=== PATIENT | female | born 1945 | race Caucasian/White ===

== ENCOUNTER 2022-03-08 10:08 | Day surgery (SDC) | payer MEDICARE, OTHER, SELFPAY ==
[2022-03-08 10:45] VITALS: BP 222/195; PULSE 69; RESP 16; TEMP 37; O2SAT 97
[2022-03-08] MEDS: Tropicam./Phenyleph. (1/2.5%) 5 ML BTL OS ×3 (11:00→12:02)
--- NOTE | 2022-03-08 11:08 | W.ANESPRE ---
General Info Date of Service Date Performed: 03/08/22 Height: 5 ft 3 in Weight: 91.5 kg Body Mass Index (BMI): 35.7 Surgical Procedure: Operation Date: 03/08/22 13:40 Proposed Procedure Side Surgeon p Cataract Extraction with IOL Implant Left Jeet Bender MD Meds Allergies and Home Medications Allergies Allergy/AdvReac Type Severity Reaction Status Date / Time No Known Allergies Allergy Unverified 03/08/22 10:44 Home Medication Medication Instructions Recorded amlodipine 10 mg tablet 10 mg PO DAILY 03/04/22 aspirin 81 mg tablet,delayed 81 mg PO DAILY 03/04/22 release atorvastatin 40 mg tablet 40 mg PO DAILY 03/04/22 cholecalciferol (vitamin D3) 50 50 mcg PO DAILY 03/04/22 mcg (2,000 unit) tablet cromolyn 4 % eye drops See Rx Instructions .Route .COMPLEX 03/04/22 doxazosin 2 mg tablet 2 mg PO BID 03/04/22 hydromorphone 2 mg tablet 2 mg PO Q6H PRN 03/04/22 lisinopril 10 mg tablet 10 mg PO BID 03/04/22 omeprazole 20 mg capsule,delayed 20 mg PO DAILY 03/04/22 release sodium bicarbonate 650 mg tablet 1,300 mg PO DAILY 03/04/22 triamcinolone acetonide 0.1 % 1 applic topical BID PRN 03/04/22 topical cream torsemide 10 mg tablet 10 mg PO DAILY 03/05/22 Current Visit Medications: Current Medications Generic Name Dose Route Start Last Admin Trade Name Freq PRN Reason Stop Dose Admin Acetaminophen 1,000 mg 03/08/22 06:00 Acetaminophen 500 Mg Tab PO Q4H PRN PRN Miscellaneous Medication 0 ml 03/08/22 06:00 Prednisolone 1%, Moxifloxacin 0.5%, Nepafenac 0.1% 5ml Btl OS DIRECTED IGNACIO Miscellaneous Medication 0 ml 03/08/22 06:00 Tropicam./Phenyleph. (1/2.5%) 5 Ml Btl OS DIRECTED IGNACIO Tetracaine HCl 0 ml 03/08/22 06:00 Tetracaine 0.5% 4 Ml Btl OS DIRECTED IGNACIO PFSH Active Problems Active Problems: Problem Status Onset Code Nuclear sclerotic cataract of left eye H25.12 Medical History Medical History Anemia Back pain Bilateral pleural effusion Bradycardia Chest pain CKD (chronic kidney disease), stage IV COPD (chronic obstructive pulmonary disease) COVID 11/2021 De Quervain's disease (tenosynovitis) left Diastolic heart failure Gait disturbance Generalized pruritus GERD (gastroesophageal reflux disease) History of stress test 2018 MIBI, small area of decreased tracer in posterior lateral wall cannot rule out prior posterior lateral AR. Otherwise no ischemia. EF 74%; 02/2021 dobutamine stress echo negative HTN (hypertension) Lumbar degenerative disc disease Neuropathy PVD (peripheral vascular disease) ABIs 08/2021; RLE severe disease, LLE severe disease Resistant hypertension 12/2020 renal artery US neg/neg bilat for stenosis Shingles (herpes zoster) polyneuropathy Sinus tarsi syndrome Smoker Medical History Comments:: pt. states her daughter is resistant to anesthesia Surgical History Surgical History H/O colonoscopy H/O eye surgery 08/2013, 10/2013 H/O shoulder surgery History of carpal tunnel surgery of right wrist 2018 History of tonsillectomy and adenoidectomy Hx of total knee arthroplasty right, 09/2018 Hx of umbilical hernia repair 09/09/20 with mesh, [facility] Tobacco Smoking/Tobacco Use Status: Current every day Alcohol Alcohol Intake: never Substance Use Substance use: Never Substance use type: does not use Vital Signs and Lab Results Vital Signs Most Recent Vital Signs in EMR: Most Recent Vital Signs Temp Pulse Resp BP Pulse Ox 37 C 69 16 222/195 H 97 03/08/22 10:45 03/08/22 10:45 03/08/22 10:45 03/08/22 10:45 03/08/22 10:45 Point of Care Results Point of Care Results: a Lab Results Blood Type / Crossmatch: No Data to Display Complete Blood Count: No Data to Display Complete Metabolic Panel: No Data to Display Liver Function Panel: No Data to Display Coagulation Panel: No Data to Display Cardiac Panel: No Data to Display Arterial Blood Gas: No Data to Display Venous Blood Gas: No Data to Display Pancreas Panel: No Data to Display Thyroid Panel: No Data to Display Infectious Disease: No Data to Display Blood Cultures: No Data to Display Toxicology Panel: No Data to Display Anesthesia Assessment and Plan Anesthesia History Personal History: No History of Anesthesia Complications Family History: No Family History of Anesthesia Complications and Other Exercise Tolerance Exercise Tolerance: Metabolic Equivalents>4 Pertinent Negatives Pertinent Negatives: No Symptoms of GERD Cardiac & Pulmonary Exam Cardiac Exam: Normal S1/S2 Heart Sounds Pulmonary Exam: Clear Bilateral Breath Sounds Implantable Cardiac Device Does patient have a Pacemaker or an ICD?: No Airway Exam Known Difficult Airway: No Mallampati Class: 1 Mouth Opening: Normal (> 3cm) Thyromental Distance: Greater than 3 cm Neck Range of Motion: Full ROM Neck Circumference: Thick Teeth Condition: Normal Dentition ASA Classification ASA Score: ASA 4 Emergency Case?: No NPO Status NPO Status: NPO Clears >2 hours, Solids >8 hours Anesthesia Plan Resuscitation Status: Full Code Anesthesia Technique: MAC Anesthesia Airway Planned: Natural Airway Monitors Used: Standard Monitors
[2022-03-08 11:12] VITALS: BMI 35.7
[2022-03-08] MEDS: Tetracaine 0.5% 4 ML BTL OS (12:49)
[2022-03-08] MEDS: Balanced Salt Soln.-PLUS 500 ML BAG (12:50)
[2022-03-08] MEDS: Lidocaine 2% Jelly 6 ML SYR (12:51)
[2022-03-08] MEDS: Povidone-Iodine Ophth 30 ML BTL (12:52)
[2022-03-08] MEDS: Duovisc Viscoelastic System EACH 1 EACH (13:06)
[2022-03-08 13:26] VITALS: BP 177/59; PULSE 62; RESP 18; TEMP 36.7; O2SAT 96
--- NOTE | 2022-03-08 13:28 | PDOC.DSDIS_ITS ---
Discharge Plan Disposition Patient Disposition: HOME Condition: Good Discharge Details Attending Provider: Jeet Bender Primary Care Provider: Adele Gupta [place] Meds and New Rx's Prescriptions: No Action atorvastatin 40 mg Tablet 40 mg PO DAILY cromolyn 4 % Drops See Rx Instructions .ROUTE .COMPLEX Rx Instructions: strength 1% aspirin 81 mg Tablet,Delayed Release (Dr/Ec) 81 mg PO DAILY triamcinolone acetonide 0.1 % Cream 1 applic TOPICAL BID PRN hydromorphone 2 mg Tablet 2 mg PO Q6H PRN sodium bicarbonate 650 mg Tablet 1,300 mg PO DAILY amlodipine 10 mg Tablet 10 mg PO DAILY lisinopril 10 mg Tablet 10 mg PO BID omeprazole 20 mg Capsule,Delayed Release(Dr/Ec) 20 mg PO DAILY doxazosin 2 mg Tablet 2 mg PO BID cholecalciferol (vitamin D3) 50 mcg (2,000 unit) Tablet 50 mcg PO DAILY torsemide 10 mg Tablet 10 mg PO DAILY Discharge Instructions Stand Alone Forms: Post-op Topical Cataract, Holland Aguirre ([facility]) Discharge Orders Discharge Orders: Discharge Order (Routine); Ordered 03/08/22 Ordered By: Jeet Bender DS: Diagnosis Discharge Diagnosis (1) Nuclear sclerotic cataract of left eye: Status: Resolved
--- NOTE | 2022-03-08 13:29 | W.PM.OP ---
Date of service: 03/08/22 Time of Service: 13:29 Operative Note Operative Note DATE OF PROCEDURE: 03/08/22 PRE-OP DIAGNOSIS: Nuclear cataract, left eye POST-OP DIAGNOSIS: same PROCEDURE: Cataract extraction using phacoemulsification with intraocular lens implant, left eye SURGEON: Jeet Bender ANESTHESIA TYPE: Local By Surgeon and MAC Refer to Anesthesia Record PATHOLOGY: none sent COMPLICATIONS: None Patient was transported to: same day Patient's condition: stable Implants: Andrey and Andrey / [employer] Tecnis [id number] Indications: Progressive decreased vision due to cataract, left eye Procedure Description: CATARACT SURGERY OPERATIVE REPORT PREOPERATIVE DIAGNOSIS: 1. Nuclear cataract, left eye POSTOPERATIVE DIAGNOSIS: Same OPERATION: 1. Cataract extraction using phacoemulsification with posterior chamber intraocular lens implant, left eye. IOL: IOL Gullet Slitter/Model: Andrey & Andrey / DEDRICK Tecnis [id number] IOL Power: + 20.5 diopters IOL Serial Number: [id number] Optic Diameter: 6.0 mm Haptic/Overall Diameter: 13.0 mm PHACO INFO: Tyler [employer]ur[employer] Vision System with OZil and Active [employer]uidics Cumulative Dispersed Energy (CDE): 11.98 seconds SURGEON: Jeet Bender MD, YOVANY ANESTHESIA: Monitored A [facility] (MAC), with local sub-tenon's anesthetic infiltration COMPLICATIONS: None SPECIMENS: None INDICATIONS FOR PROCEDURE: The patient is a 76-year-old lady with history of diminished visual acuity in her left eye secondary to the development of nuclear cataract. She is significantly symptomatic that she desires cataract surgery and attempt to improve and maximize her vision and option of cataract surgery was offered to the patient and she wished to proceed. PROCEDURE: The correct surgical eye was identified and marked as the left eye and the pupil was dilated in the preoperative area using mydriatics and cycloplegics. The dilated pupil size was 7.0 mm. The patient elected to proceed without oral sedation. The patient was brought to the operating room where cardiopulmonary monitoring was instituted and surgical time-out was performed, confirming the correct operative eye and IOL power. Topical anesthesia was administered and ophthalmic povidone-iodine 5% was instilled into the conjunctival fornices. Lidocaine gel was applied to the cornea and the toby-ocular area was prepped with Betadine 10% solution and draped in the usual sterile fashion for intraocular surgery, including an aperture drape. A Tegaderm transparent film dressing was cut in half and used to cover the lashes and lid margins. Care was taken to sequester the lashes and lid margins under the Tegaderm dressing. A lid speculum was placed between the lids of the operative eye and the Tyler Lux[employer] Revalia operating microscope was maneuvered into position. Jose Antonio scissors were then used to make a conjunctival buttonhole approximately 6mm posterior to the limbus in the inferonasal quadrant. Blunt dissection was carried out to expose bare sclera, and a blunt-tipped sub-tenon?s anesthesia cannula was introduced and passed posteriorly along the globe where non-preserved plain lidocaine was injected into posterior sub-Tenon?s space. A sideport knife was used to make a paracentesis port superiorly/superiortemporally. Intraocular phenylephrine/lidocaine was injected int the anterior chamber.. The anterior chamber was filled with viscoelastic. A keratome knife was used to construct a 2-plane near-clear corneal tunnel extending 2.0mm into clear cornea temporally. A flap was raised on the anterior capsule and capsulorhexis forceps were used to complete a continuous curvilinear capsulorhexis of 5.0 mm. Balanced salt solution was then used to perform cortical cleaving hydrodissection and nuclear hydrodelineation until the lens could be freely rotated within the capsular bag. The lens nucleus was then disassembled and removed within the capsular bag and iris plane using phacoemulsification. Residual cortical material was removed using the 45-degree angled silicone I/A tip with 0.3mm port. During cortical cleanup, a perfectly round hole in the posterior capsule was present just inferior to the visual axis. No vitreous prolapse was noted, and Viscoat was injected into the hole to tamponade the vitreous. Care was taken not to allow any chamber to collapse during removal of the irrigation/aspiration handpiece. The capsular bag was partially filled with Viscoat, followed by Provisc. The hole was noted to be perfectly round, approximately 2 mm in diameter, likely due to the phacoemulsification tip. The decision was made to implant the lens within the capsular bag, as the risk of extension of the hole was unlikely, and no vitreous prolapse was noted.. The lens implant described above was inserted into the capsular bag using the DEDRICK [place] Injector. A Kuglen hook was used to dial the IOL into position, very carefully. Residual viscoelastic was then removed very slowly from the anterior chamber using the I/A handpiece. Balanced salt solution was injected into the side-port while removing the irrigation/aspiration handpiece to avoid chamber collapse. The lens implant was noted to center nicely within the capsular bag. The incisions were stromally hydrated, and the anterior chamber was reformed using BSS. Miostat was then injected into the anterior chamber. A side-port knife was then used to make a paracentesis port at the 7 o'clock position, and additional balanced salt solution was injected into the anterior chamber while depressing the lip of the inferior nasal side-port to ensure all residual viscoelastic was removed from the anterior chamber. Then 0.5cc of moxifloxacin 1.0mg/ml were injected into the capsular bag and anterior chamber. The incisions were checked with a Weck spear and found to be secure. The pupil was noted to be round, approximately 4 mm, with no peaking. Several drops of ophthalmic povidone-iodine 5% were then applied to the eye followed by two drops of Imprimis combination prednisolone/moxifloxacin/nepafenac solution. The drapes were removed and a clear plastic protective eye shield was placed over the eye. The patient was then returned to Same Day Surgery in stable condition.
[2022-03-08] MEDS: Torsemide 20 MG TAB 10 MG PO (13:34)
[2022-03-08] MEDS: amLODIPine 10 MG TAB PO (13:34)
--- NOTE | 2022-03-08 14:08 | W.ANESPOSTOP ---
Postoperative Evaluation Date, Time and Location Date Performed: 03/08/22 Time Performed: 13:30 Patient Location: Day Surgery Unit Vital Signs Most Recent Imported Vital Signs: Most Recent Vital Signs Temp Pulse Resp BP Pulse Ox 36.7 C 62 18 177/59 H 96 03/08/22 13:26 03/08/22 13:26 03/08/22 13:26 03/08/22 13:26 03/08/22 13:26 Pain Score Most Recent Pain Score: Most Recent Pain Score Pain Level 0 03/08/22 13:26 Assessment Mental Status: Awake (Alert & Oriented to Patient Baseline) Airway and Respiratory Function: Patent airway with normal (patient baseline) respiratory exam Cardiovascular Function: Hemodynamically Stable Hydration Status: Adequately Hydrated Nausea & Vomiting: No Nausea or Vomiting Pain: Pt. Denies Any Pain Peripheral Nerve Block: Patient did not receive a nerve block
== END 2022-03-08 13:49 | disposition home or self-care (01) ==
PROVIDERS: PCP Family Medicine; Visit Provider Ophthalmology
PROC: (CPT 66984; principal; 2022-03-08 13:30)
DX: H25.12 Age-related nuclear cataract, left eye (principal); J44.9 Chronic obstructive pulmonary disease, unspecified
CPT/HCPCS: 66984; V2632

== ENCOUNTER 2022-04-09 08:13 | Day surgery (SDC) | payer MEDICARE, SELFPAY ==
[2022-04-09] MEDS: Tropicam./Phenyleph. (1/2.5%) 5 ML BTL OD ×3 (08:37→08:50)
[2022-04-09 08:39] VITALS: BP 142/54; PULSE 74; RESP 16; TEMP 36.6; O2SAT 96
--- NOTE | 2022-04-09 08:44 | W.ANESPRE ---
General Info Date of Service Date Performed: 04/09/22 Height: 5 ft 3 in Weight: 91.5 kg Body Mass Index (BMI): 35.7 Surgical Procedure: Operation Date: 04/09/22 10:40 Proposed Procedure Side Surgeon p Cataract Extraction with IOL Implant Right Jeet Bender MD Meds Allergies and Home Medications Allergies Allergy/AdvReac Type Severity Reaction Status Date / Time No Known Allergies Allergy Unverified 04/09/22 08:33 Home Medication Medication Instructions Recorded amlodipine 10 mg tablet 10 mg PO DAILY 03/04/22 aspirin 81 mg tablet,delayed 81 mg PO DAILY 03/04/22 release atorvastatin 40 mg tablet 40 mg PO DAILY 03/04/22 cholecalciferol (vitamin D3) 50 50 mcg PO DAILY 03/04/22 mcg (2,000 unit) tablet cromolyn 4 % eye drops See Rx Instructions .Route .COMPLEX 03/04/22 doxazosin 2 mg tablet 2 mg PO BID 03/04/22 hydromorphone 2 mg tablet 2 mg PO Q6H PRN 03/04/22 lisinopril 10 mg tablet 10 mg PO BID 03/04/22 omeprazole 20 mg capsule,delayed 20 mg PO DAILY 03/04/22 release sodium bicarbonate 650 mg tablet 1,300 mg PO DAILY 03/04/22 triamcinolone acetonide 0.1 % 1 applic topical BID PRN 03/04/22 topical cream torsemide 10 mg tablet 40 mg PO DAILY 03/05/22 Current Visit Medications: Current Medications Generic Name Dose Route Start Last Admin Trade Name Freq PRN Reason Stop Dose Admin Acetaminophen 1,000 mg 04/09/22 06:00 Acetaminophen 500 Mg Tab PO Q4H PRN PRN Miscellaneous Medication 0 ml 04/09/22 06:00 Prednisolone 1%, Moxifloxacin 0.5%, Nepafenac 0.1% 5ml Btl OD DIRECTED IGNACIO Miscellaneous Medication 0 ml 04/09/22 06:00 04/09/22 08:43 Tropicam./Phenyleph. (1/2.5%) 5 Ml Btl OD 1 drp DIRECTED IGNACIO Administration Tetracaine HCl 0 ml 04/09/22 06:00 Tetracaine 0.5% 4 Ml Btl OD DIRECTED IGNACIO PFSH Active Problems Active Problems: Problem Status Onset Code Nuclear sclerotic cataract of right eye H25.11 Nuclear sclerotic cataract of left eye H25.12 Medical History Medical History Anemia Back pain Bilateral pleural effusion Bradycardia Chest pain CKD (chronic kidney disease), stage IV COPD (chronic obstructive pulmonary disease) COVID 11/2021 De Quervain's disease (tenosynovitis) left Diastolic heart failure Gait disturbance Generalized pruritus GERD (gastroesophageal reflux disease) History of stress test 2018 MIBI, small area of decreased tracer in posterior lateral wall cannot rule out prior posterior lateral MT. Otherwise no ischemia. EF 74%; 02/2021 dobutamine stress echo negative HTN (hypertension) Lumbar degenerative disc disease Neuropathy PVD (peripheral vascular disease) ABIs 08/2021; RLE severe disease, LLE severe disease Resistant hypertension 12/2020 renal artery US neg/neg bilat for stenosis Shingles (herpes zoster) polyneuropathy Sinus tarsi syndrome Smoker Surgical History Surgical History H/O colonoscopy H/O eye surgery 08/2013, 10/2013 H/O shoulder surgery History of carpal tunnel surgery of right wrist 2018 History of cataract surgery History of tonsillectomy and adenoidectomy Hx of total knee arthroplasty right, 09/2018 Hx of umbilical hernia repair 09/09/20 with mesh, [facility] Smoking/Tobacco Use Status: Current every day Alcohol Alcohol Intake: never Substance Use Substance use: Never Substance use type: does not use Vital Signs and Lab Results Vital Signs Most Recent Vital Signs in EMR: Most Recent Vital Signs Temp Pulse Resp BP Pulse Ox 36.6 C 74 16 142/54 H 96 04/09/22 08:39 04/09/22 08:39 04/09/22 08:39 04/09/22 08:39 04/09/22 08:39 Lab Results Blood Type / Crossmatch: No Data to Display Complete Blood Count: No Data to Display Complete Metabolic Panel: No Data to Display Liver Function Panel: No Data to Display Coagulation Panel: No Data to Display Cardiac Panel: No Data to Display Arterial Blood Gas: No Data to Display Venous Blood Gas: No Data to Display Pancreas Panel: No Data to Display Thyroid Panel: No Data to Display Infectious Disease: No Data to Display Blood Cultures: No Data to Display Toxicology Panel: No Data to Display Anesthesia Assessment and Plan Anesthesia History Personal History: No History of Anesthesia Complications Family History: No Family History of Anesthesia Complications and Other Exercise Tolerance Exercise Tolerance: Metabolic Equivalents<4 Pertinent Negatives Pertinent Negatives: No Symptoms of GERD Cardiac & Pulmonary Exam Cardiac Exam: Normal S1/S2 Heart Sounds Pulmonary Exam: Clear Bilateral Breath Sounds Implantable Cardiac Device Does patient have a Pacemaker or an ICD?: No Airway Exam Known Difficult Airway: No Mallampati Class: 1 Mouth Opening: Normal (> 3cm) Thyromental Distance: Greater than 3 cm Neck Range of Motion: Full ROM Neck Circumference: Thick Teeth Condition: Normal Dentition ASA Classification ASA Score: ASA 4 Emergency Case?: No NPO Status NPO Status: NPO Clears >2 hours, Solids >8 hours Anesthesia Plan Resuscitation Status: Full Code Anesthesia Technique: MAC Anesthesia Airway Planned: Natural Airway Monitors Used: Standard Monitors Preoperative Comments:: No MKO as before. Pt agrees
--- NOTE | 2022-04-09 08:47 | HPE_ITS ---
Assessment and Plan Assessment and plan (1) Nuclear sclerotic cataract of right eye: Status: Acute Assessment and plan: Assessment: Visually significant cataract of the right eye. Plan: Cataract extraction with lens implantation of the right eye History of Present Illness History of Present Illness Chief Complaint: Decreased vision right eye Narr ative: Patient is a 76-year-old lady with history of progressive decreased vision in both eyes secondary to the development of bilateral nuclear cataracts, rather dense. She notes significant difficulty with glare driving at night, and in fact had to stop driving at night due to severe glare and visual difficulties. She also has difficulty with depth perception such as climbing stairs. She underwent cataract surgery in the left eye on 03/08/2022, and postoperatively has regained uncorrected visual acuity of 20/25. She now presents for cataract surgery in the right eye. Review of Systems All systems reviewed & are unremarkable except as noted in HPI and below PFSH All Active Problems Nuclear sclerotic cataract of right eye (Acute) Medical History Anemia Back pain Bilateral pleural effusion Bradycardia Chest pain CKD (chronic kidney disease), stage IV COPD (chronic obstructive pulmonary disease) COVID 11/2021 De Quervain's disease (tenosynovitis) left Diastolic heart failure Gait disturbance Generalized pruritus GERD (gastroesophageal reflux disease) History of stress test 2018 MIBI, small area of decreased tracer in posterior lateral wall cannot rule out prior posterior lateral DE. Otherwise no ischemia. EF 74%; 02/2021 dobutamine stress echo negative HTN (hypertension) Lumbar degenerative disc disease Neuropathy PVD (peripheral vascular disease) ABIs 08/2021; RLE severe disease, LLE severe disease Resistant hypertension 12/2020 renal artery US neg/neg bilat for stenosis Shingles (herpes zoster) polyneuropathy Sinus tarsi syndrome Smoker Surgical History H/O colonoscopy H/O eye surgery 08/2013, 10/2013 H/O shoulder surgery History of carpal tunnel surgery of right wrist 2018 History of cataract surgery History of tonsillectomy and adenoidectomy Hx of total knee arthroplasty right, 09/2018 Hx of umbilical hernia repair 09/09/20 with mesh, [facility] Social History Smoking/Tobacco Use Status: Current every day Smoking risk assessment performed?: Yes Alcohol Intake: never Drug use: Never Substance use type: does not use Do you feel safe at home: Yes Do you feel safe in your relationship?: Yes Meds Allergies and Home Medications Allergies Allergy/AdvReac Type Severity Reaction Status Date / Time No Known Allergies Allergy Unverified 04/09/22 08:33 Home Medications Medication Instructions Recorded Confirmed Type amlodipine 10 mg tablet 10 mg PO DAILY 03/04/22 04/09/22 History aspirin 81 mg tablet,delayed 81 mg PO DAILY 03/04/22 04/09/22 History release atorvastatin 40 mg tablet 40 mg PO DAILY 03/04/22 04/09/22 History cholecalciferol (vitamin D3) 50 50 mcg PO DAILY 03/04/22 04/09/22 History mcg (2,000 unit) tablet cromolyn 4 % eye drops See Rx Instructions .Route .COMPLEX 03/04/22 04/09/22 History doxazosin 2 mg tablet 2 mg PO BID 03/04/22 04/09/22 History hydromorphone 2 mg tablet 2 mg PO Q6H PRN 03/04/22 04/09/22 History lisinopril 10 mg tablet 10 mg PO BID 03/04/22 04/09/22 History omeprazole 20 mg capsule,delayed 20 mg PO DAILY 03/04/22 04/09/22 History release sodium bicarbonate 650 mg tablet 1,300 mg PO DAILY 03/04/22 04/09/22 History triamcinolone acetonide 0.1 % 1 applic topical BID PRN 03/04/22 04/09/22 History topical cream torsemide 10 mg tablet 40 mg PO DAILY 03/05/22 04/09/22 History Exam Eyes Other: Corrected visual acuity measures 20/40 in the right eye, uncorrected vision is 20/25 in the left eye. Extraocular motility is normal. Intraocular pressure is 21 OD, 19 OS. Slit-lamp examination reveals a 3+ brunescent cataract in the right eye with severe sclerosis. The left eye there is a well-positioned IOL located in the back. There is a posterior capsular hole inferiorly. The pupil is round with no vitreous present. Funduscopic examination reveals disc cupping of 0.3 OU with normal vessels, macula, peripheral retina and vitreous. Resp Auscultation: clear to auscultation bilaterally Cardio Rate: regular rate Rhythm: regular rhythm Results Last Vital Signs Temp 36.6 C 04/09/22 08:39 Pulse 74 04/09/22 08:39 Resp 16 04/09/22 08:39 BP 142/54 H 04/09/22 08:39 Pulse Ox 96 04/09/22 08:39
[2022-04-09 08:48] VITALS: BMI 35.7
[2022-04-09] MEDS: Tetracaine 0.5% 4 ML BTL OD (09:30)
[2022-04-09] MEDS: Lidocaine 2% Jelly 6 ML SYR (09:31)
[2022-04-09] MEDS: Povidone-Iodine Ophth 30 ML BTL (09:32)
[2022-04-09] MEDS: Balanced Salt Soln.-PLUS 500 ML BAG (09:36)
[2022-04-09] MEDS: Duovisc Viscoelastic System EACH 1 EACH (09:36)
[2022-04-09 10:07] VITALS: BP 140/52; PULSE 76; RESP 16; TEMP 36.3; O2SAT 97
--- NOTE | 2022-04-09 10:10 | PDOC.DSDIS_ITS ---
Date of service: 04/09/22 Time of Service: 10:10 Discharge Plan Disposition Patient Disposition: HOME Condition: Good Discharge Details Attending Provider: Jeet Bender Primary Care Provider: Adele Gupta [place] Meds and New Rx's Prescriptions: No Action atorvastatin 40 mg Tablet 40 mg PO DAILY cromolyn 4 % Drops See Rx Instructions .ROUTE .COMPLEX Rx Instructions: strength 1% aspirin 81 mg Tablet,Delayed Release (Dr/Ec) 81 mg PO DAILY triamcinolone acetonide 0.1 % Cream 1 applic TOPICAL BID PRN hydromorphone 2 mg Tablet 2 mg PO Q6H PRN sodium bicarbonate 650 mg Tablet 1,300 mg PO DAILY amlodipine 10 mg Tablet 10 mg PO DAILY lisinopril 10 mg Tablet 10 mg PO BID omeprazole 20 mg Capsule,Delayed Release(Dr/Ec) 20 mg PO DAILY doxazosin 2 mg Tablet 2 mg PO BID cholecalciferol (vitamin D3) 50 mcg (2,000 unit) Tablet 50 mcg PO DAILY torsemide 10 mg Tablet 40 mg PO DAILY Discharge Instructions Stand Alone Forms: Post-op Topical Holland Schmid ([facility]) DS: Diagnosis Discharge Diagnosis (1) Nuclear sclerotic cataract of right eye: Status: Resolved
--- NOTE | 2022-04-09 10:11 | W.PM.OP ---
Date of service: 04/09/22 Time of Service: 10:11 Operative Note Operative Note DATE OF PROCEDURE: 04/09/22 PRE-OP DIAGNOSIS: Dense nuclear cataract, right eye POST-OP DIAGNOSIS: same PROCEDURE: Cataract extraction using phacoemulsification with intraocular lens implant, right eye SURGEON: Jeet Bender ANESTHESIA TYPE: Local By Surgeon and MAC Refer to Anesthesia Record ESTIMATED BLOOD LOSS: 0 PATHOLOGY: none sent COMPLICATIONS: None Patient was transported to: same day Patient's condition: stable Implants: [employer] Andrey/DEDRICK Tecnis [id number] Indications: Progressive visual loss due to cataract, right eye Procedure Description: CATARACT SURGERY OPERATIVE REPORT PREOPERATIVE DIAGNOSIS: 1. Dense nuclear cataract, right eye POSTOPERATIVE DIAGNOSIS: Same OPERATION: 1. Cataract extraction using phacoemulsification with posterior chamber intraocular lens implant, right eye. IOL: IOL [employer] Appliance Servicer Helper/Model: Andrey [employer] Andrey / DEDRICK Tecnis [id number] IOL Power: + 22.5 diopters IOL Serial Number: [id number] Optic Diameter: 6.0mm Haptic/Overall Diameter: 13.0mm PHACO INFO: [employer] Vision System with OZil and Active Fluidics Cumulative Dispersed Energy (CDE): 22.84 seconds SURGEON: Jeet Bender MD, YOVANY ANESTHESIA: Monitored Anesthesia Care (MAC), with local sub-tenon's anesthetic infiltration COMPLICATIONS: None SPECIMENS: None INDICATIONS FOR PROCEDURE: The patient is a 76-year-old lady with history of diminished visual acuity in her right eye secondary to the development of dense nuclear cataract. She has already undergone cataract surgery in her left eye and is doing well postoperatively. She now presents for cataract surgery in the right eye. PROCEDURE: The correct surgical eye was identified and marked as the right eye and the pupil was dilated in the preoperative area using mydriatics and cycloplegics. The dilated pupil size was 6.5 mm. The patient elected to proceed without oral sedation. The patient was brought to the operating room where cardiopulmonary monitoring was instituted and surgical time-out was performed, confirming the correct operative eye and IOL power. Topical anesthesia was administered and ophthalmic povidone-iodine 5% was instilled into the conjunctival fornices. Lidocaine gel was applied to the cornea and the toby-ocular area was prepped with Betadine 10% solution and draped in the usual sterile fashion for intraocular surgery, including an aperture drape. A Tegaderm transparent film dressing was cut in half and used to cover the lashes and lid margins. Care was taken to sequester the lashes and lid margins under the Tegaderm dressing. A lid speculum was placed between the lids of the operative eye and the [employer] operating microscope was maneuvered into position. Jose Antonio scissors were then used to make a conjunctival buttonhole approximately 6mm posterior to the limbus in the inferonasal quadrant. Blunt dissection was carried out to expose bare sclera, and a blunt-tipped sub-tenon?s anesthesia cannula was introduced and passed posteriorly along the globe where non-preserved plain lidocaine was injected into posterior sub-Tenon?s space. A sideport knife was used to make a paracentesis port inferotemporally. Intraocular phenylephrine/lidocaine was injected into the anterior chamber. The anterior chamber was filled with viscoelastic. A keratome knife was used to construct a 2-plane near-clear corneal tunnel extending 2.0mm into clear cornea superiortemporally. A flap was raised on the anterior capsule and capsulorhexis forceps were used to complete a continuous curvilinear capsulorhexis of 5.5 mm. Balanced salt solution was then used to perform cortical cleaving hydrodissection and nuclear hydrodelineation until the lens could be freely rotated within the capsular bag. The lens nucleus was then disassembled and removed within the capsular bag and iris plane using phacoemulsification. Abundant viscoelastic was used during phacoemulsification to protect the corneal endothelium due to the dense nuclear sclerosis. Residual cortical material was removed using the I/A handpiece. The posterior capsule was carefully polished to remove as much residual lens epithelial cells as safely possible. The posterior capsule was noted to be extremely thin and diaphanous. The capsular bag was then inflated and the anterior chamber deepened with viscoelastic. The lens implant described above was inserted into the capsular bag using the DEDRICK Manzanita Injector. A Kuglen hook was used to dial the IOL into position. Residual viscoelastic was then removed first from posterior to the IOL, then from the anterior chamber using the I/A handpiece. The lens implant was noted to center nicely within the capsular bag. The incisions were stromally hydrated, and the anterior chamber was reformed using BSS. Then 0.5cc of moxifloxacin 1.0mg/ml were injected into the capsular bag and anterior chamber. The incisions were checked with a Weck spear and found to be secure. Several drops of ophthalmic povidone-iodine 5% were then applied to the eye followed by two drops of Imprimis combination prednisolone/moxifloxacin/nepafenac solution. The drapes were removed and a clear plastic protective eye shield was placed over the eye. The patient was then returned to [facility] Day Surgery in stable condition.
--- NOTE | 2022-04-09 10:31 | W.ANESPOSTOP ---
Postoperative Evaluation Date, Time and Location Date Performed: 04/09/22 Time Performed: 10:20 Patient Location: Day Surgery Unit Vital Signs Most Recent Imported Vital Signs: Most Recent Vital Signs Temp Pulse Resp BP Pulse Ox 36.3 C L 76 16 140/52 L 97 04/09/22 10:07 04/09/22 10:07 04/09/22 10:07 04/09/22 10:07 04/09/22 10:07 Pain Score Most Recent Pain Score: Most Recent Pain Score Pain Level 0 04/09/22 10:07 Assessment Mental Status: Awake (Alert & Oriented to Patient Baseline) Airway and Respiratory Function: Patent airway with normal (patient baseline) respiratory exam Cardiovascular Function: Hemodynamically Stable Hydration Status: Adequately Hydrated Nausea & Vomiting: No Nausea or Vomiting Pain: Pt. Denies Any Pain Peripheral Nerve Block: Patient did not receive a nerve block
== END 2022-04-09 10:25 | disposition home or self-care (01) ==
LOC: SUR 08:16
PROVIDERS: PCP Family Medicine; Visit Provider Ophthalmology
PROC: (CPT 66984; principal; 2022-04-09 10:30)
DX: H25.11 Age-related nuclear cataract, right eye (principal); J44.9 Chronic obstructive pulmonary disease, unspecified; I13.0 Hypertensive heart and chronic kidney disease with heart failure and stage 1 through stage 4 chronic kidney disease, or unspecified chronic kidney disease; I50.30 Unspecified diastolic (congestive) heart failure; N18.9 Chronic kidney disease, unspecified
CPT/HCPCS: 66984; V2632